=== PATIENT | male | born 1940 | race African-American/Black ===

== ENCOUNTER 2025-03-15 09:52 | Emergency (ER) | payer BC, MEDICARE, OTHER ==
[~2025-03-15] VITALS: Ht 172.7 cm; Wt 75.0 kg
[2025-03-15 09:53] VITALS: O2SAT 98
[2025-03-15] MEDS: SODIUM CHLORIDE 0.9% (SEPSIS BOLUS) IV ONE (11:13)
[2025-03-15 11:21] LABS: BASOPHILS % 0.8 % (0.0-2.0); EOSINOPHILS % 2.4 % (0.0-5.0); HEMATOCRIT. 31.7 % (42.0-52.0); HEMOGLOBIN. 10.5 g/dL (14.0-18.0); LYMPHOCYTES % 19.7 % (20.0-50.0); MEAN PLATELET VOLUME 7.7 fl (7.4-10.4); MONOCYTES % 9.5 % (2.0-8.0); NEUTROPHILS % 67.6 % (40.0-76.0); PLATELET 206 x1000/uL (130-400); RED BLOOD CELL COUNT 3.13 mill/uL (4.7-6.1); RED CELL DISTRIBUTION WIDTH 13.0 % (11.6-14.6)
[2025-03-15 11:30] LABS: INR 1.1
[2025-03-15 11:40] LABS: CREATININE 2.8 mg/dL (0.6-1.3); UREA NITROGEN BLOOD 32 mg/dL (9-23)
[2025-03-15 11:41] LABS: TROPONIN I HIGH SENSITIVITY 7 ng/L (3.0-53)
[2025-03-15 11:42] LABS: ASPARTATE AMINOTRANSFERASE 34 IU/L (<34); BILIRUBIN DIRECT 0.1 mg/dL (<=3.0); BILIRUBIN TOTAL 0.4 mg/dL (0.1-1.0); PROTEIN TOTAL 6.6 g/dL (6.0-8.3)
[2025-03-15 13:41] VITALS: TEMP 36.5; O2SAT 98
[2025-03-15 14:37] VITALS: BP 124/73; PULSE 72; RESP 15; TEMP 97.70
== END 2025-03-15 15:28 | disposition left against medical advice (07) ==
LOC: ER 09:52 → UNDOADMIN 13:45 → 5WST 13:45 → EDBEDREQ 14:18 → EDBEDREQTM 14:18 → ENRESERV 14:31 → UNDODISIN 20:49
DX: R55 Syncope and collapse (principal); I24.9 Acute ischemic heart disease, unspecified; E11.9 Type 2 diabetes mellitus without complications; E78.00 Pure hypercholesterolemia, unspecified; I10 Essential (primary) hypertension
CPT/HCPCS: 99285; 96360; 71045; 96361; 80076; 80048; 83605; 85025; 85610; 87040; 84484; 36415; 84145; 93005; J7030